=== PATIENT | male | born 2000 | race Caucasian/White ===

== ENCOUNTER 2022-11-30 10:04 | Emergency (ER) | payer BC, OTHER ==
[2022-11-30 10:12] VITALS: BP 124/77; PULSE 98
[2022-11-30] MEDS ORDERED: Acetaminophen/HYDROcodone 325-5 MG Tab PO ONE (11:18)
[2022-11-30] MEDS ORDERED: Lidocaine 1% 10 ML MDV INJECT ONE (11:19)
== END 2022-11-30 13:32 | disposition home or self-care (01) ==
LOC: JD.ED 10:04
DX: S62.634A Displaced fracture of distal phalanx of right ring finger, initial encounter for closed fracture (principal); S67.194A Crushing injury of right ring finger, initial encounter; S60.141A Contusion of right ring finger with damage to nail, initial encounter; Z91.048 Other nonmedicinal substance allergy status; W23.1XXA Caught, crushed, jammed, or pinched between stationary objects, initial encounter
CPT/HCPCS: 73140; 99283; A9270; J3490